=== PATIENT | female | born 1930 | race Caucasian/White ===

== ENCOUNTER 2017-03-16 10:39 | Day surgery (SDC) | payer MEDICARE ==
[~2017-03-16] VITALS: Ht 152.4 cm; Wt 36.3 kg
[~2017-03-16 10:39] MED LIST: ACET500C PO; AMLO2.5T PO; ASPI1TAB PO; FISH100049 PO; LUTECAP3 PO; NORV5TAB PO; OMEP20CA3 PO; PAXI20TA29 PO; PAXI40TA10 PO; SLEE1TAB PO; VITA500046 PO
[2017-03-16] MEDS ORDERED: LR 1,000 ML IV ONE (10:45)
[2017-03-16] MEDS ORDERED: VANCOMYCIN HCL 500 MG in D5W MINI-BAG PLUS 100 ML IV ONE (12:30)
[2017-03-16] MEDS ORDERED: LIDOCAINE 1% SDV INJ 30 ML VIAL As Ordered ONE ×2 (13:41→13:52)
[2017-03-16] MEDS ORDERED: VANCOMYCIN 1000 MG/20 ML VIAL (J3370) As Ordered ONE (13:41)
--- NOTE | 2017-03-16 15:51 | RO ---
DATE OF PROCEDURE: 03/16/2017 PREPROCEDURE DIAGNOSIS: Battery depletion of dual chamber pacemaker pulse generator. POSTPROCEDURE DIAGNOSIS: Battery depletion of dual chamber pacemaker pulse generator. FINDINGS: Battery depletion of dual chamber pacemaker pulse generator. OPERATIVE PROCEDURE: Explantation of old [employer] dual chamber pacemaker pulse generator and implantation of new [employer] dual chamber pacemaker pulse generator. SURGEON: Cullen Staley MD ELECTION CLERK: None. ANESTHESIA: Lidocaine 1% local/monitored anesthetic care. SPECIMENS: Old [employer] dual chamber pacemaker pulse generator. ESTIMATED BLOOD LOSS: Less than 10 mL. BLOOD PRODUCTS REPLACED: None. DRAINS: None. COMPLICATIONS: None. DESCRIPTION OF PROCEDURE: The patient was prepped and draped over the left pectoral region. Lidocaine 1% was used for local anesthetic. An incision was made with a #15 blade across the body of the pacemaker pulse generator and about 1 cm below the original pacemaker incision. Fine scissor dissection was used to get through the anterior capsule. The pacemaker pulse generator was then removed from the pocket. The existing atrial and ventricular leads were removed from the existing pacemaker pulse generator and tested after hooking him up to alligator clips and they were found to be satisfactory. 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 The terminal pins of the ventricle and atrial leads were plugged into their respective ports in the header of the new pacemaker pulse generator and each one was secured by tightening the set screws with the Hex screwdriver. Next, I extended the pocket in a caudal direction a small amount to accommodate the different size of the new pacemaker pulse generator. The excess lead material was then placed below the pacemaker pulse generator and placed along with the pacemaker pulse generator into the existing pacemaker capsule. The pacemaker pulse generator was then secured to the pectoral muscle with a #0-Ethibond suture to secure to the pectoral muscle. Next, the deep layer was closed using individual sutures consisting of #2-0 Vicryl. A few individual #3-0 Vicryl sutures were used to help close the more superficial layer. The skin was then closed using taylor. The patient tolerated the procedure well without any immediate complications. The pacemaker pulse generator that was explanted was a [employer], model 5826 with serial #[id number], originally implanted 07/19/2007. The new pacemaker pulse generator implanted was a [employer] MRI, model #QN4150. It had serial #[id number]. The existing right atrial lead was a [employer], model #1388T/46 with serial #[id number], originally implanted 07/19/2007. Testing in the operating room for the right atrial lead showed capture threshold of 0.8 volts at 0.4 ms with P wave amplitude of 1.9 mV and lead impedance of 436 ohms. The existing right ventricle lead was a [employer], model #1688T/56 with serial #[id number], originally implanted 07/19/2007. Testing in the operating room showed capture threshold for the ventricle lead to be 0.8 volts at 0.4 ms with lead impedance of 427 ohms. No R wave could be obtained because the patient was pacemaker dependent.
[2017-03-16 16:10] VITALS: BP 152/73
== END 2017-03-16 16:20 | disposition home or self-care (01) ==
LOC: M SDC 10:39
PROVIDERS: ATTEND Internal Medicine Cardiovascular Disease
DX: Z45.010 Encounter for checking and testing of cardiac pacemaker pulse generator [battery] (principal); I49.5 Sick sinus syndrome; I48.91 Unspecified atrial fibrillation; I13.10 Hypertensive heart and chronic kidney disease without heart failure, with stage 1 through stage 4 chronic kidney disease, or unspecified chronic kidney disease; F03.90 Unspecified dementia, unspecified severity, without behavioral disturbance, psychotic disturbance, mood disturbance, and anxiety; N18.9 Chronic kidney disease, unspecified; Z86.73 Personal history of transient ischemic attack (TIA), and cerebral infarction without residual deficits; Z79.899 Other long term (current) drug therapy; Z79.82 Long term (current) use of aspirin; Z88.0 Allergy status to penicillin; Z88.8 Allergy status to other drugs, medicaments and biological substances; Z88.1 Allergy status to other antibiotic agents; Z88.2 Allergy status to sulfonamides
CPT/HCPCS: 33228; C1785; J3370

== ENCOUNTER → 2018-06-22 | Outpatient (REF) | payer MEDICARE ==
[~2018-06-22] MED LIST changes: -AMLO2.5T PO; +AMLO2.5T3 PO
[2018-06-22 17:10] LABS: HEMATOCRIT 32.5 % (36.0-47.0); HEMOGLOBIN 10.7 g/dl (12.0-15.5); MEAN CORPUSCULAR HEMOGLOBIN 33.3 pg (27.0-33.0); MEAN CORPUSCULAR HGB CONC 32.9 g/dl (32.0-36.5); MEAN CORPUSCULAR VOLUME 101.2 fl (80.0-96.0); PLATELET COUNT, AUTOMATED 147 10^3/uL (150-450); RED BLOOD COUNT 3.21 10^6/uL (4.00-5.40); WHITE BLOOD COUNT 3.8 10^3/uL (4.0-10.0)
[2018-06-22 17:55] LABS: ALBUMIN 2.6 GM/DL (3.2-5.2); ALT/SGPT 12 U/L (12-78); BILIRUBIN,TOTAL 0.5 MG/DL (0.2-1.0); BLOOD UREA NITROGEN 22 MG/DL (7-18); CALCIUM LEVEL 8.2 MG/DL (8.8-10.2); CARBON DIOXIDE LEVEL 26 MEQ/L (21-32); CHLORIDE LEVEL 110 MEQ/L (98-107); CHOLESTEROL LEVEL 141 MG/DL (<200); CHOLESTEROL RISK RATIO 4.147 (<5); CREATININE FOR GFR 0.62 MG/DL (0.55-1.30); FERRITIN 55 NG/ML (8-252); GLOMERULAR FILTRATION RATE > 60.0 (>32); GLUCOSE, FASTING 111 MG/DL (70-100); HDL CHOLESTEROL 34 MG/DL (>40); LDL CHOLESTEROL 88 MG/DL (<100); MAGNESIUM LEVEL 2.1 MG/DL (1.8-2.4); NON-HDL-C 107 MG/DL; NT-PRO BNP 1155 PG/ML (<450); SODIUM LEVEL 144 MEQ/L (136-145); THYROXINE (T4) 6.1 UG/DL (4.5-12.0); TRIGLYCERIDES LEVEL 97 MG/DL (<150); URIC ACID 3.6 MG/DL (2.6-6.0)
[2018-06-22 18:00] LABS: FOLATE 11.4 NG/ML (>5.4); TOTAL 25(OH) VITAMIN D 24.4 NG/ML (30.0-100.0)
== END ==
LOC: M LAB REF 16:12
PROVIDERS: ATTEND Internal Medicine Cardiovascular Disease
DX: D64.9 Anemia, unspecified (principal); I50.9 Heart failure, unspecified; E78.49 Other hyperlipidemia; E03.9 Hypothyroidism, unspecified; M10.9 Gout, unspecified